=== PATIENT | female | born 1965 | race Caucasian/White ===

== ENCOUNTER → 2017-04-04 | Day surgery (SDC) | payer MEDICARE, MEDICAID ==
[~2017-04-04] MED LIST: ALPR-138 PO; AMAR4TAB PO; APREPITANT 40 MG CAP ONE; BUPIVACAINE HCL PF 0.5% 10 ML VIAL ONE; BUPIVACAINE HCL PF 0.5% 30 ML VIAL ONE; EPINEPHrine HCL (1:1000) 30 MG/30 ML VIAL ONE; GABA250S PO; HYDR-3580 PO; INSU100V3 SC; LACTATED RINGER'S 1,000 ML BAG IV ONE; LEVS0.124 SL; LOMO PO; LORTA10 PO; MIDAZOLAM HCL 5 MG/ML VIAL (1 ML) ONE; ONDANSETRON HCL 4 MG/2 ML VIAL ONE; PIOG15 PO; PRESTIQUE PO; PREV30CA36 PO; PROM1SUP12 PO; PROP120 PO; PROPOFOL 200 MG/20 ML AMP IV ONE; RAMI2.5C29 PO; SODIUM CHLORIDE 0.9% SOLN 100 ML (PAB) BAG IV ONE; ZOFR8TAB PO; ceFAZolin INJ 1,000 MG VIAL ONE
--- NOTE | 2017-04-04 15:01 | MP ---
cc: RUBÉN KHAN DATE OF SURGERY: 04/04/2017 PREOPERATIVE DIAGNOSIS Right shoulder rotator cuff tear. Right shoulder impingement syndrome. Right shoulder labral tear. POSTOPERATIVE DIAGNOSES Right shoulder rotator cuff tear. Right shoulder impingement syndrome. Right shoulder labral tear. PROCEDURE Right shoulder arthroscopic rotator cuff repair. Right shoulder arthroscopic subacromial decompression. Right shoulder arthroscopic debridement of labral SLAP tear. SURGEON Dr. Rubén Khan TI[employer] BUILDER Rubén Pittman PA-C ANESTHESIA General with an interscalene block. ESTIMATED BLOOD LOSS Less than 10 cc. COMPLICATIONS None. IMPLANTS USED Arthrex. JUSTIFICATION The patient is a 51-year female with a history of increasing pain and weakness in regards to the right shoulder. She has failed conservative treatment. Clinical exam as well as MRI confirmed the above-named findings. The patient was counseled as to the risks, benefits and alternatives to the above-named proposed surgical procedure and she did wish to proceed with surgery. PROCEDURE IN DETAIL Written consent was obtained. The patient was identified by name. Interscalene block anesthesia was administered to the right upper extremity. The patient was taken to the operating room and general anesthesia was administered as well as two grams of IV Ancef. The patient was carefully transferred to a left lateral decubitus position. A lateral arm roll was placed. All bony prominences and pressure points were well-padded. The neck position was carefully monitored and kept neutral. An arthroscopic arm love was gently applied to the right upper extremity and 10 pounds of traction placed. The right shoulder was prepped and draped using isopropyl alcohol, Hibiclens solution and ChloraPrep solution. After a timeout was performed, a standard posterior and anterior glenohumeral arthroscopic portal was established. The glenohumeral joint revealed evidence of extensive labral tearing along the anterior, superior and posterior aspect. An arthroscopic shaver was introduced from the anterior portal and extensive debridement of the labrum was performed to include the 3 o'clock position up to the superior 12 o'clock position and back down to the 9 o'clock position. The biceps origin was intact. Minimal chondromalacia of the glenohumeral joint was noted. Attention was turned to subacromial space where there was evidence of severe impingement and severe bursitis. An arthroscopic shaver was introduced from a lateral portal. A subacromial decompression was performed. The shaver was used to perform extensive bursectomy. An arthroscopic bur was used to perform an acromioplasty, and the cautery device was used to release the coracoacromial ligament. There was evidence of full-thickness tear of the rotator cuff tendon at the insertion site of supraspinatus tendon. There was evidence of prior failed surgical repair with a broken Ethibond suture within the shoulder. This was debrided with an arthroscopic shaver. A bur was used to decorticate the greater tuberosity in preparation for rotator cuff tendon repair. An Arthrex Scorpion device was used to shuttle #2 FiberTape suture through the anterior and posterior portions of the torn tendon. #2 FiberLink suture was also placed. The sutures were then placed through the eyelet of an Arthrex 4.75 mm Bio-SwiveLock anchor. The anchor was inserted into the tuberosity. After appropriate tensioning of sutures the rotator cuff tendon repair was probed and noted good stability and fixation after repair. At the conclusion of the surgical procedure the arthroscopic portals were closed with 3-0 Prolene suture, sterile dressing applied. The patient was placed in a sling and swathe immobilizer. She tolerated the procedure with no intraoperative complications noted. Rubén Pittman, physician economic research assistant certified, was present during the entire procedure to include patient positioning and the procedure itself. The medical necessity of the physician economic research assistant was indicated in this case due to the complexity of the procedure. He assisted with appropriate manipulation of the arm and also manipulation of the camera during surgery. He assisted with shuttling of sutures and also implantation of suture anchor for purposes of rotator cuff tendon repair. Rubén Khan MD JWCatherine/STEPHENIE /2:02 PM /2:40 PM
== END | disposition home or self-care (01) ==
LOC: ESDC 10:49
PROVIDERS: ATTEND Orthopaedic Surgery Sports Medicine
DX: M75.121 Complete rotator cuff tear or rupture of right shoulder, not specified as traumatic (principal); M75.41 Impingement syndrome of right shoulder; S43.431A Superior glenoid labrum lesion of right shoulder, initial encounter; E11.9 Type 2 diabetes mellitus without complications; Z79.4 Long term (current) use of insulin
CPT/HCPCS: 01630; 01991; 29823; 29826; 29827; 64417; 82948; C1713; J0171; J0690; J2250; J2405; J7120; J8501